=== PATIENT | female | born 2000 | race Two or more races ===

== ENCOUNTER 2024-06-17 14:19 | Emergency (ER) | payer MEDICAID ==
[~2024-06-17] VITALS: Ht 167.6 cm; Wt 67.0 kg
--- NOTE | 2024-06-17 14:37 | ECG ---
[facility] Test Date: 2024-06-17 Test Time: 14:34:44 Pat Name: KRISHNA DURAND Department: er Room: Gender: F Senior Hadoop Developer: melly : 2000 Requested By: MARIELA MOODY Order Number: [id number] Reading MD: Venkatesh Lyons Measurements Intervals [place] Rate: 67 P: 31 [place]: 176 QRS: 67 QRSD: 78 T: 53 QT: 385 QTc: 407 Interpretive Statements Sinus rhythm Electronically Signed On 06-22-2024 16:08:27 PST by Venkatesh Lyons Please click the below link to view image of tracing.
[2024-06-17 14:44] LABS: Basophils # (auto) 0.1 10 ^3/uL (0-0.2); Basophils % (auto) 1.2 % (0.0-2.0); Eosinophils # (auto) 0.1 10 ^3/uL (0-0.8); Eosinophils % (auto) 1.3 % (0.0-7.0); Hematocrit 41.4 % (36.0-46.0); Hemoglobin 13.8 g/dL (12.2-16.2); Lymphocytes # (auto) 2.4 10 ^3/uL (0.4-5.4); Mean Corpuscular Hgb Conc. 33.4 g/dL (32.0-36.0); Mean Corpuscular Volume 87.1 fL (80.0-100.0); Monocytes # (auto) 0.5 10 ^3/uL (0-1.3); Neutrophils # (auto) 5.8 10 ^3/uL (1.6-8.6); Neutrophils % (auto) 64.5 % (37.0-80.0); Nucleated Red Blood Cells % 0.1 %; Platelet Count (auto) 332 10^3/uL (140-450); Red Blood Cells 4.75 10^6/uL (4.0-5.20); Red Cell Distribution Width 15.1 % (11.8-14.3)
--- NOTE | 2024-06-17 15:01 | ED.PDOC ---
HPI Comments 23 y.o female presents to the ED for a chief complaint of chest pain radiating to her left arm and to her back that started 4 days ago. Patient describes pain as sharp, constant,worsens when laying flat and sometimes will wake her up from her sleep. Patient reports pain slightly improves when sitting up straight. No SOB, nausea, vomiting, abdominal pain, fever, or chills reported. Patient took Tylenol and peptobismol with no relief. She has no medical history or allergies. Chief Complaint: Chest Pain Time Seen by MD: 14:35 Primary Care Provider: betty Reviewed Notes: Nurses Notes, Medications, Allergies Allergies: Coded Allergies: NO KNOWN ALLERGIES (Unverified , 06/17/24) Information Source: Patient Mode of Arrival: Ambulatory Severity: Moderate Timing: Days (4) Duration: Since onset Location: Chest (L) Radiation: Back, Arm (L) Quality: Sharp Onset: At Rest Cardiac Risk Factors: None PE Risk Factors: None History of: None Modifying Factors: Nothing Associated Signs and Symptoms: Back Pain Past Medical History PAST MEDICAL HISTORY: Denies Surgical History: Denies all surgeries KEYBOARD SPECIALIST History: No Pertinent KEYBOARD SPECIALIST History Family History Family History: Reviewed,noncontributory to illness, No family hx of Cancer, No family hx of DM, No family hx of Heart evelyn, No family hx of HTN, No family hx ofKidney evelyn, No family hx of Liver evelyn, No family hx of Lung evelyn, No family hx of Stroke Social History Smoker: Non-Smoker Alcohol: Denies ETOH Use Drugs: Denies Drug Use Lives In: Home Constitutional: denies: chills, diaphoresis, fatigue, fever, malaise, sweats, weakness, others EENTM: denies: blurred vision, double vision, ear bleeding, ear discharge, ear drainage, ear pain, ear ringing, eye pain, eye redness, hearing loss, mouth pain, mouth swelling, nasal discharge, nose bleeding, nose congestion, nose pain, photophobia, tearing, throat pain, throat swelling, voice changes, others Respiratory: denies: cough, hemoptysis, orthopnea, SOB at rest, shortness of breath, SOB with excertion, stridor, wheezing, others Cardiovascular: reports: chest pain, left arm pain; denies: dizzy spells, diaphoresis, Dyspnea on exertion, edema, irregular heart beat, lightheadedness, palpitations, PND, syncope, others Gastrointestinal: denies: abdomen distended, abdominal pain, blood streaked bowels, constipated, diarrhea, dysphagia, difficulty swallowing, hematemesis, melena, nausea, poor appetite, poor fluid intake, rectal bleeding, rectal pain, vomiting, others Genitourinary: denies: abnormal vagina bleeding, burning, dyspareunia, dysuria, flank pain, frequency, hematuria, incontinence, pain, , vagina discharge , urgency, others Neurological: denies: dizziness, fainting, headache, left sided numbness, left sided weakness, numbness, paresthesia, pre-existing deficit, right sided numbness, right sided weakness, seizure, speech problems, tingling, tremors, weakness, others Musculoskeletal: reports: back pain; denies: gout, joint pain, joint swelling, muscle pain, muscle stiffness, neck pain, others Integumetry: denies: bruises, change in color, change in hair/nails, dryness, laceration, lesions, lumps, rash, wounds, others Allergic/Immunocompromised: denies: Difficulty Healing, Frequent Infections, Hives, Itching, others Hematologic/Lymphatic: denies: anemia, blood clots, easy bleeding, easy bruising, swollen glands, others Endocrine: denies: excessive hunger, excessive sweating, excessive thirst, excessive urination, flushing, intolerance to cold, intolerance to heat, unexplained weight gain, unexplained weight loss, others Psychiatric: denies: anxiety, bipolar disorder, depression, hopeless, panic disorder, schizophrenia, sleepless, suicidal, others All Other Systems: Reviewed and Negative Physical Exam General Appearance: No Apparent Distress, Normal HEENT: Normal ENT Inspection, Pharynx Normal, TMs Normal Neck: Full Range of Motion, Non-Tender, Normal, Normal Inspection Respiratory: Chest Non-Tender, Lungs Clear, No Accessory Muscle Use, No Respiratory Distress, Normal Breath Sounds Cardiovascular: No Edema, No JVD, No Murmur, No Gallop, Normal Peripheral Pulses, Regular Rate/Rhythm Breast Exam: Deferred Gastrointestinal: No Organomegaly, Non Tender, No Pulsatile Mass, Normal Bowel Sounds, Soft Genitalia: Deferred Pelvic: Deferred Rectal: Deferred Extremities: No calf tenderness, Normal capillary refill, Normal inspection, Normal range of motion, Non-tender, No pedal edema Musculoskeletal : Apperance: Normal Neurologic: Alert, plug making operator II-XII nml as Tested, No Motor Deficits, Normal Affect, Normal Mood, No Sensory Deficits Cerebellar Function: Normal Reflexes: Normal Skin: Dry, Normal Color, Warm Lymphatic: No Adenopathy Was a procedure done? Was a procedure done?: No CP Differential Dx Differential Diagnosis: N/A Differential Diagnosis: Angina, Chest Wall Pain, Costochondritis, Esophageal reflux/spasm, Gastritis, Myocardial Infarction, Pericarditis, Pneumonia, Pneumothorax, Pulmonary Embolus, Other (pleurisy, anxiety, mvp) X-Ray, Labs, Meds, VS Vital Signs Date Time Temp Pulse Resp B/P (MAP) Pulse Ox O2 Delivery O2 Flow Rate FiO2 06/17/24 14:34 67 06/17/24 14:31 98.4 70 16 116/73 (87) 97 Lab Test 06/17/24 15:16 06/17/24 14:24 Range/Units Troponin I High Sensitivity < 3 L < 3 L </=34 ng/L White Blood Count 9.0 4.4-10.8 10^3/uL Red Blood Count 4.75 4.0-5.20 10^6/uL Hemoglobin 13.8 12.2-16.2 g/dL Hematocrit 41.4 36.0-46.0 % Mean Corpuscular Volume 87.1 80.0-100.0 fL Mean Corpuscular Hemoglobin 29.0 28.0-32.0 pg Mean Corpuscular Hemoglobin Concent 33.4 32.0-36.0 g/dL Red Cell Distribution Width 15.1 H 11.8-14.3 % Platelet Count 332 140-450 10^3/uL Mean Platelet Volume 8.2 6.9-10.8 fL Neutrophils (%) (Auto) 64.5 37.0-80.0 % Lymphocytes (%) (Auto) 27.0 10.0-50.0 % Monocytes (%) (Auto) 6.0 0.0-12.0 % Eosinophils (%) (Auto) 1.3 0.0-7.0 % Basophils (%) (Auto) 1.2 0.0-2.0 % Neutrophils # (Auto) 5.8 1.6-8.6 10 ^3/uL Lymphocytes # (Auto) 2.4 0.4-5.4 10 ^3/uL Monocytes # (Auto) 0.5 0-1.3 10 ^3/uL Eosinophils # (Auto) 0.1 0-0.8 10 ^3/uL Basophils # (Auto) 0.1 0-0.2 10 ^3/uL Nucleated Red Blood Cells 0.1 % Sodium Level 140 136-145 mmol/L Potassium Level 4.3 3.5-5.1 mmol/L Chloride Level 105 98-107 mmol/L Carbon Dioxide Level 26 20-31 mmol/L Anion Gap 9 5-15 Blood Urea Nitrogen 13 9-23 mg/dL Creatinine 0.66 0.550-1.02 mg/dL Glomerular Filtration Rate Calc 126 >90 mL/min BUN/Creatinine Ratio 19.7 10.0-20.0 Serum Glucose 101 74-106 mg/dL Calcium Level 10.5 H 8.7-10.4 mg/dL Total Bilirubin 0.6 0.2-1.0 mg/dL Aspartate Amino Transferase (AST) 11 L 13-40 U/L Alanine Aminotransferase (ALT) 16 7-40 U/L Alkaline Phosphatase 68 46-116 U/L Total Protein 7.7 5.7-8.2 g/dL Albumin 4.8 3.2-4.8 g/dL Beta HCG, Quantitative 7.5 H 1.5-4.2 mIU/mL Time of 1ST Reevaluation: 14:57 Reevaluation 1ST: Unchanged Patient Education/Counseling: Diagnosis, Treatment, Prognosis Family Education/Counseling: No Family Present Additional Information Ordered Test: LAB, CXR Reviewed Result: LAB including Beta HCG, Troponin, CBC, CMP, and PTPTT Interpreted results: CXR- pt declined Discuss tx/ results: Patient and medical personnel pt declined cxr her hcg is borderline positive, too early for imaging. she will need to follow up with [facility] in 48 hours. the chest pain workup is unremarkable. her HEART score is low risk. she is stable for discharge Departure 1 Departure Time of Disposition: 17:44 Impression: Primary Impression: Chest pain Qualified Codes: R07.9 - Chest pain, unspecified Disposition: HOME / SELF CARE / HOMELESS Condition: Good Discharged With: Self Critical Care Note Critical Care Time?: No Stability Stability form required: No Heart Score Heart Score: Heart Score Response (Comments) Value History Slightly Suspicious 0 EKG Normal 0 Age <45 0 Risk Factors No known risk factors 0 Troponin Normal limit 0 Total 0 I personally scribed for MARIELA MOODY MD ([facility]) on 06/17/24 at 15:01. Electronically submitted by Mabel Vieyra ([facility]). I personally scribed for MARIELA MOODY MD ([facility]) on 06/17/24 at 15:08. Electronically submitted by Mabel Vieyra ([facility]). I personally scribed for MARIELA MOODY MD ([facility]) on 06/17/24 at 15:08. Electronically submitted by Mabel Vieyra ([facility]). MARIELA MOODY MD Jun 17, 2024 15:01
[2024-06-17 15:11] LABS: Alanine Aminotransferase 16 U/L (7-40); Alkaline Phosphatase 68 U/L (46-116); Anion Gap 9 (5-15); BUN/Creatinine Ratio 19.7 (10.0-20.0); Bilirubin, Total 0.6 mg/dL (0.2-1.0); Blood Urea Nitrogen 13 mg/dL (9-23); Carbon Dioxide 26 mmol/L (20-31); Chloride 105 mmol/L (98-107); Glucose 101 mg/dL (74-106); Potassium 4.3 mmol/L (3.5-5.1); Sodium 140 mmol/L (136-145); Total Protein 7.7 g/dL (5.7-8.2)
[2024-06-17 15:15] LABS: Albumin 4.8 g/dL (3.2-4.8)
[2024-06-17 15:19] LABS: Aspartate Aminotransferase 11 U/L (13-40); Calcium 10.5 mg/dL (8.7-10.4)
[2024-06-17 18:36] VITALS: BP 121/66; PULSE 70; RESP 17; TEMP 98.1; O2SAT 100
--- NOTE | 2024-06-20 12:26 | ECG ---
[facility] Test Date: 2024-06-17 Test Time: 14:25:55 Pat Name: KRISHNA DURAND Department: ED Room: Gender: F Command And Control Officer: ALAN : 2000 Requested By: MARIELA MOODY Order Number: [id number] Reading MD: Venkatesh Lyons Measurements Intervals [place] Rate: 70 P: 47 [place]: 178 QRS: 65 QRSD: 77 T: 49 QT: 382 QTc: 413 Interpretive Statements Incomplete analysis due to missing data in precordial lead(s) Sinus rhythm Missing lead(s): V5 Electronically Signed On 06-22-2024 16:08:26 PST by Venkatesh Lyons Please click the below link to view image of tracing.
== END 2024-06-17 18:38 | disposition home or self-care (01) ==
LOC: ER 14:19
DX: R07.89 Other chest pain (principal); R10.2 Pelvic and perineal pain
CPT/HCPCS: 36415; 80053; 84484; 84702; 85025; 93005

== ENCOUNTER 2024-06-20 09:25 | Emergency (ER) | payer MEDICAID ==
[~2024-06-20] VITALS: Ht 167.6 cm; Wt 75.2 kg
[2024-06-20 09:42] VITALS: BP 129/83; PULSE 88; RESP 18; O2SAT 99
--- NOTE | 2024-06-20 11:12 | ED.PDOC ---
History of Present Illness HPI Comments 23 y/o F, with a Hx of preeclampsia and , presents with c/o nonproductive cough with associated chest wall tightness for the past 9 days. Patient is a Jordanian speaker and endorses on returning to the ED, again, to be evaluated for symptoms, due to them still persisting and not having an chest X- ray performed then, due to being told she was found via urine sample test. Patient states on aforementioned visit taking place 3x days ago and has had multiple negative at home tests since then. Patient also informs of Tylenol and Pepto Bismol medication use to no relief or improvement. Patient denies having any shortness of breath, fever, chills, urinary symptoms, or other modifiers at this time. Chief Complaint: Cough Time Seen by MD: 10:20 Primary Care Provider: UNKNOWN Reviewed Notes: Nurses Notes, Medications, Allergies Allergies: Coded Allergies: NO KNOWN ALLERGIES (Unverified , 06/17/24) Home Meds Active Scripts Azithromycin (Zithromax) 1 Gm Pow, 1 PACK PO ONCE, #1 PACK Prov:LEONARDO FOOTE MD 06/20/24 Information Source: Patient Mode of Arrival: Ambulatory Severity: Moderate Timing: Hours Duration: Since onset Prehospital treatment: None Past Medical History PAST MEDICAL HISTORY: Denies Surgical History: PSYCHOLOGIST PRIVATE PRACTICE History: Other (preeclampsia) Family History Family History: Reviewed,noncontributory to illness, No family hx of Cancer, No family hx of DM, No family hx of Heart evelyn, No family hx of HTN, No family hx ofKidney evelyn, No family hx of Liver evelyn, No family hx of Lung evelyn, No family hx of Stroke Social History Smoker: Non-Smoker Alcohol: Denies ETOH Use Drugs: Denies Drug Use Lives In: Home Constitutional: denies: chills, diaphoresis, fatigue, fever, malaise, sweats, weakness, others EENTM: denies: blurred vision, double vision, ear bleeding, ear discharge, ear drainage, ear pain, ear ringing, eye pain, eye redness, hearing loss, mouth pain, mouth swelling, nasal discharge, nose bleeding, nose congestion, nose pain, photophobia, tearing, throat pain, throat swelling, voice changes, others Respiratory: reports: cough; denies: hemoptysis, orthopnea, SOB at rest, shortness of breath, SOB with excertion, stridor, wheezing, others Cardiovascular: reports: chest pain (chest wall tightness ); denies: dizzy spells, diaphoresis, Dyspnea on exertion, edema, irregular heart beat, left arm pain, lightheadedness, palpitations, PND, syncope, others Gastrointestinal: denies: abdomen distended, abdominal pain, blood streaked bowels, constipated, diarrhea, dysphagia, difficulty swallowing, hematemesis, melena, nausea, poor appetite, poor fluid intake, rectal bleeding, rectal pain, vomiting, others Genitourinary: denies: abnormal vagina bleeding, burning, dyspareunia, dysuria, flank pain, frequency, hematuria, incontinence, pain, , vagina discharge, urgency, others Neurological: denies: dizziness, fainting, headache, left sided numbness, left sided weakness, numbness, paresthesia, pre-existing deficit, right sided numbness, right sided weakness, seizure, speech problems, tingling, tremors, weakness, others Musculoskeletal: denies: back pain, gout, joint pain, joint swelling, muscle pain, muscle stiffness, neck pain, others Integumetry: denies: bruises, change in color, change in hair/nails, dryness, laceration, lesions, lumps, rash, wounds, others Allergic/Immunocompromised: denies: Difficulty Healing, Frequent Infections, Hives, Itching, others Hematologic/Lymphatic: denies: anemia, blood clots, easy bleeding, easy br uising, swollen glands, others Endocrine: denies: excessive hunger, excessive sweating, excessive thirst, excessive urination, flushing, intolerance to cold, intolerance to heat, unexplained weight gain, unexplained weight loss, others Psychiatric: denies: anxiety, bipolar disorder, depression, hopeless, panic disorder, schizophrenia, sleepless, suicidal, others All Other Systems: Reviewed and Negative Physical Exam General Appearance: No Apparent Distress HEENT: Normal ENT Inspection, Pharynx Normal, TMs Normal Neck: Full Range of Motion, Non-Tender, Normal, Normal Inspection Respiratory: Chest Non-Tender, Lungs Clear, No Accessory Muscle Use, No Respiratory Distress, Normal Breath Sounds Cardiovascular: No Edema, No JVD, No Murmur, No Gallop, Normal Peripheral Pulses, Regular Rate/Rhythm Breast Exam: Deferred Gastrointestinal: No Organomegaly, Non Tender, No Pulsatile Mass, Normal Bowel Sounds, Soft Genitalia: Deferred Pelvic: Deferred Rectal: Deferred Extremities: No calf tenderness, Normal capillary refill, Normal inspection, Normal range of motion, Non-tender, No pedal edema Musculoskeletal : Apperance: Normal Neurologic: Alert, dual hose cementer II-XII nml as Tested, No Motor Deficits, Normal Affect, Normal Mood, No Sensory Deficits Cerebellar Function: Normal Reflexes: Normal Skin: Dry, Normal Color, Warm Lymphatic: No Adenopathy Was a procedure done? Was a procedure done?: No Differential Dx Considerations may include: viral syndrome, costochondritis, pericarditis, angina, gastritis, gastroenteritis, anxiety, , MD, ACS X-Ray, Labs, Meds, VS Vital Signs Date Time Temp Pulse Resp B/P (MAP) Pulse Ox O2 Delivery O2 Flow Rate FiO2 06/20/24 09:42 98.6 88 18 129/83 (98) 99 Lab Test 06/20/24 10:49 Range/Units Beta HCG, Quantitative 3.7 1.5-4.2 mIU/mL The chest x-ray shows peribronchial cuffing The quantitative hCG is negative The patient was being discharged with a diagnosis of acute bronchitis The patient was given a prescription of Zithromax Images Reviewed?: Images reviewed and evaluated by me Time of 1ST Reevaluation: 10:50 Reevaluation 1ST: Unchanged Patient Education/Counseling: Diagnosis, Treatment, Prognosis, Need For Follow Up Family Education/Counseling: No Family Present Departure 1 Departure Time of Disposition: 13:04 Impression: Primary Impression: Acute bronchitis Qualified Codes: J20.9 - Acute bronchitis, unspecified Disposition: 01 HOME / SELF CARE / HOMELESS Condition: Fair e-Prescriptions Azithromycin (Zithromax) 1 Gm Pow 1 PACK PO ONCE, #1 PACK Prov: LEONARDO FOOTE MD 06/20/24 Discharged With: Self Critical Care Note Critical Care Time?: No Stability Stability form required: No Heart Score Heart Score: Heart Score Response (Comments) Value History N/A 0 EKG N/A 0 Age N/A 0 Risk Factors N/A 0 Troponin N/A 0 Total 0 I personally scribed for LEONARDO FOOTE MD ([email or web address]) on 06/20/24 at 11:12. Electronically submitted by Oral Lazo ([email or web address]). LEONARDO FOOTE MD Jun 20, 2024 11:12
--- NOTE | 2024-06-20 12:26 | DVH ---
XY CHEST TWO VIEWS ROUTINE CLINICAL HISTORY: cough COMPARISON: None TECHNIQUE: Frontal and lateral view of the chest was obtained FINDINGS: Lines and Tubes: None Lungs: No focal consolidation. Pleura: No effusion. No pneumothorax. Cardiomediastinal contours: Unremarkable Bones: No acute osseous abnormality. IMPRESSION: No acute cardiopulmonary disease.
[2024-06-20] MEDS ORDERED: AZIT1POW PO (13:02)
== END 2024-06-20 15:39 | disposition home or self-care (01) ==
LOC: ER 09:25
DX: J20.9 Acute bronchitis, unspecified (principal); R10.2 Pelvic and perineal pain; Z87.59 Personal history of other complications of pregnancy, childbirth and the puerperium
CPT/HCPCS: 36415; 71046; 84702

== ENCOUNTER 2024-10-11 11:43 | Emergency (ER) | payer MEDICAID ==
[~2024-10-11] VITALS: Ht 139.7 cm; Wt 77.0 kg
[~2024-10-11 11:43] MED LIST: AZIT1POW PO
[2024-10-11 12:14] VITALS: BP 125/73; PULSE 92; RESP 17; TEMP 97
[2024-10-11 12:17] VITALS: O2SAT 97
[2024-10-11 12:39] LABS: Urine Bacteria None Seen /hpf (None Seen)
[2024-10-11 12:53] LABS: Urine Blood Negative /uL (Negative); Urine Clarity Clear (Clear); Urine Color Colorless (Yellow); Urine Protein, UAD Negative (Negative); Urine Specific Gravity 1.005 (1.001-1.035); Urine Squamous Epithelial Cell FEW /hpf (<5); Urine Urobilinogen Normal (Negative); Urine WBC 3 /HPF (0-5); Urine pH 5.5 (5.0-9.0)
[2024-10-11 12:56] LABS: Basophils # (auto) 0.1 10 ^3/uL (0-0.2); Basophils % (auto) 0.4 % (0.0-2.0); Eosinophils # (auto) 0.1 10 ^3/uL (0-0.8); Eosinophils % (auto) 0.5 % (0.0-7.0); Hematocrit 39.1 % (36.0-46.0); Lymphocytes # (auto) 2.2 10 ^3/uL (0.4-5.4); Lymphocytes % (auto) 14.5 % (10.0-50.0); Mean Corpuscular Hemoglobin 29.8 pg (28.0-32.0); Mean Corpuscular Hgb Conc. 33.2 g/dL (32.0-36.0); Mean Corpuscular Volume 89.6 fL (80.0-100.0); Monocytes # (auto) 0.8 10 ^3/uL (0-1.3); Monocytes % (auto) 5.4 % (0.0-12.0); Neutrophils # (auto) 11.9 10 ^3/uL (1.6-8.6); Neutrophils % (auto) 79.2 % (37.0-80.0); Platelet Count (auto) 287 10^3/uL (140-450); Red Blood Cells 4.36 10^6/uL (4.0-5.20); Red Cell Distribution Width 14.2 % (11.8-14.3)
[2024-10-11 13:00] LABS: Chloride 105 mmol/L (98-107); Potassium 3.9 mmol/L (3.5-5.1); Sodium 138 mmol/L (136-145)
[2024-10-11 13:01] LABS: Anion Gap 10 (5-15); Calcium 9.5 mg/dL (8.7-10.4); Carbon Dioxide 23 mmol/L (20-31)
[2024-10-11 13:06] LABS: Glucose 83 mg/dL (74-106)
--- NOTE | 2024-10-11 13:15 | ED.PDOC ---
SOB-HPI HPI Comments 24 year old presents for URI symptoms who is a Chinese speaker and endorses on returning to the ED, again She is concerned about PNA Patient also informs taking Tylenol. Patient denies having any shortness of breath, fever, chills, urinary symptoms, or other modifiers at this time. 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 Family History Family History: Reviewed,noncontributory to illness, No family hx of Cancer, No family hx of DM, No family hx of Heart evelyn, No family hx of HTN, No family hx ofKidney evelyn, No family hx of Liver evelyn, No family hx of Lung eveyln, No family hx of Stroke Social History Smoker: Non-Smoker Alcohol: Denies ETOH Use Drugs: Denies Drug Use Lives In: Home All Other Systems: Reviewed and Negative (Per HPI) Physical Exam General Appearance: No Apparent Distress, Normal HEENT: Normal ENT Inspection, Pharynx Normal, TMs Normal Neck: Full Range of Motion, Non-Tender, Normal, Normal Inspection Respiratory: Chest Non-Tender, Lungs Clear, No Accessory Muscle Use, No Respiratory Distress, Normal Breath Sounds Cardiovascular: No Edema, No JVD, No Murmur, No Gallop, Normal Peripheral Pulses, Regular Rate/Rhythm Breast Exam: Deferred Gastrointestinal: No Organomegaly, Non Tender, No Pulsatile Mass, Normal Bowel Sounds, Soft Genitalia: Deferred Pelvic: Deferred Rectal: Deferred Extremities: No calf tenderness, Normal capillary refill, Normal inspection, Normal range of motion, Non-tender, No pedal edema Musculoskeletal : Apperance: Normal Neurologic: Alert, network controller II-XII nml as Tested, No Motor Deficits, Normal Affect, Normal Mood, No Sensory Deficits Cerebellar Function: Normal Reflexes: Normal Skin: Dry, Normal Color, Warm Lymphatic: No Adenopathy Was a procedure done? Was a procedure done?: No Differential Dx Differential Diagnosis: Pneumonia, URI X-Ray, Labs, Meds, VS Vital Signs Date Time Temp Pulse Resp B/P (MAP) Pulse Ox O2 Delivery O2 Flow Rate FiO2 10/11/24 12:17 97 10/11/24 12:14 92 17 93 Room Air 10/11/24 12:14 97.0 92 15 125/73 (90) 93 97.0 10/11/24 11:58 97.0 92 15 125/73 (90) 93 97.0 10/11/24 11:58 Room Air* 0 21 Lab Test 10/11/24 12:38 10/11/24 12:26 Range/Units White Blood Count 15.0 H 4.4-10.8 10^3/uL Red Blood Count 4.36 4.0-5.20 10^6/uL Hemoglobin 13.0 12.2-16.2 g/dL Hematocrit 39.1 36.0-46.0 % Mean Corpuscular Volume 89.6 80.0-100.0 fL Mean Corpuscular Hemoglobin 29.8 28.0-32.0 pg Mean Corpuscular Hemoglobin Concent 33.2 32.0-36.0 g/dL Red Cell Distribution Width 14.2 11.8-14.3 % Platelet Count 287 140-450 10^3/uL Mean Platelet Volume 8.4 6.9-10.8 fL Neutrophils (%) (Auto) 79.2 37.0-80.0 % Lymphocytes (%) (Auto) 14.5 10.0-50.0 % Monocytes (%) (Auto) 5.4 0.0-12.0 % Eosinophils (%) (Auto) 0.5 0.0-7.0 % Basophils (%) (Auto) 0.4 0.0-2.0 % Neutrophils # (Auto) 11.9 H 1.6-8.6 10 ^3/uL Lymphocytes # (Auto) 2.2 0.4-5.4 10 ^3/uL Monocytes # (Auto) 0.8 0-1.3 10 ^3/uL Eosinophils # (Auto) 0.1 0-0.8 10 ^3/uL Basophils # (Auto) 0.1 0-0.2 10 ^3/uL Nucleated Red Blood Cells 0.0 % Sodium Level 138 136-145 mmol/L Potassium Level 3.9 3.5-5.1 mmol/L Chloride Level 105 98-107 mmol/L Carbon Dioxide Level 23 20-31 mmol/L Anion Gap 10 5-15 Blood Urea Nitrogen < 5 L 9-23 mg/dL Creatinine 0.46 L 0.550-1.02 mg/dL Glomerular Filtration Rate Calc 137 >90 mL/min BUN/Creatinine Ratio 10.9 10.0-20.0 Serum Glucose 83 74-106 mg/dL Calcium Level 9.5 8.7-10.4 mg/dL Urine Color Colorless Yellow Urine Clarity Clear Clear Urine pH 5.5 5.0-9.0 Urine Specific [place] 1.005 1.001-1.035 Urine Protein Negative Negative Urine Ketones Negative Negative Urine Blood Negative Negative /uL Urine Nitrite Negative Negative Urine Bilirubin Negative Negative Urine Urobilinogen Normal Negative mg/dL Urine Leukocyte Esterase 1+ Negative /uL Urine RBC 1 0 - 4 /hpf Urine Microscopic WBC 3 0-5 /HPF Urine Squamous Epithelial Cells Few <5 /hpf Urine Bacteria None seen None Seen /hpf Urine Glucose Normal Normal mg/dL X-Ray, Labs, Meds, VS Comment History and physical consistent of URI Risk vs benefits discussed of XRAY and she agreed to plan No risk factors. No indication for antibiotics Discussed that cough can linger up to 6 weeks after viral URI ED precautions if cough does not alleviate or if cough worsens Supportive care and return precautions discussed Counseled viral infection and explained that antibiotics would not be helpful in resolving the illness sooner. Recommended vitamin C, rest, handwashing, and symptomatic care. Expect 2-week course with possibly of cough lingering up to 6 weeks. Nonpharmacological remedies for fluids has been recommended as well Time of 1ST Reevaluation: 13:14 Reevaluation 1ST: Improved Patient Education/Counseling: Diagnosis, Treatment Family Education/Counseling: Diagnosis, Treatment Departure 1 Departure Time of Disposition: 14:05 Impression: Primary Impression: Viral syndrome Disposition: 01 HOME / SELF CARE / HOMELESS Condition: Stable Discharged With: Self Critical Care Note Critical Care Time?: No Stability Stability form required: No Heart Score Heart Score: Heart Score Response (Comments) Value History N/A 0 EKG N/A 0 Age N/A 0 Risk Factors N/A 0 Troponin N/A 0 Total 0 DOLORES THOMAS NP Oct 11, 2024 13:15
[2024-10-11 13:25] LABS: BUN/Creatinine Ratio 10.9 (10.0-20.0); Blood Urea Nitrogen < 5 mg/dL (9-23)
--- NOTE | 2024-10-11 13:48 | DVH ---
CHEST RADIOGRAPH Indication: elevated wbc, cough, r/o PNA Technique: Single frontal view of the chest was obtained COMPARISON: None FINDINGS: Lines and Tubes: None Lungs: Clear Pleura: No effusion. No pneumothorax. Cardiomediastinal contours: Unremarkable Bones: Unremarkable IMPRESSION: No acute disease.
== END 2024-10-11 14:19 | disposition home or self-care (01) ==
LOC: ER 11:43
DX: B34.9 Viral infection, unspecified (principal); R05.9 Cough, unspecified
CPT/HCPCS: 36415; 71045; 80048; 81001; 85025